=== PATIENT | male | born 1995 | race Caucasian/White ===

== ENCOUNTER 2023-09-23 23:33 | Emergency (ER) | payer OTHER ==
--- NOTE | 2023-09-24 03:01 | ED Physician Documentation ---
History of Present Illness - Stated complaint Stated Complaint: CHEST PX/SOA - Chief complaint Chief Complaint: Cardiac - History obtained from History obtained from: Patient - Additonal information Additional information: HPI from patient. Patient c/o dyspnea, dry cough, and chest pain since approximately 9 PM tonight. Onset was gradual while at home, at rest. Denies fever. He describes the chest p ain as burning "like a blowtorch" (per patient) and indicates it is bilateral and predominantly anterior. There is not a pleuritic component to the chest pain, although deep inspiration tends to exacerbate the coughing. No other exacerbating nor ameliorating factors for the dyspnea, chest pain. Denies h/o similar symptoms. Denies fever, chills, diaphoresis. Denies hemoptysis. No recent plane travel/long trips. No recent surgery nor injury. Has not noticed any leg swelling. There is a family history of spontaneous pneumothorax amongst multiple relatives including his father. Review of Systems Constitutional: denies: Fever, Chills, Myalgias, Sweats Throat: denies: Sore throat Cardiac: reports: Chest pain / pressure. denies: Palpitations, Pedal edema, Calf pain Respiratory: reports: Dyspnea, Cough. denies: Hemoptysis, Wheezing Musculoskeletal: denies: Extremity swelling PD PAST MEDICAL HISTORY - Past Medical History Respiratory: Asthma - Past Surgical History Past Surgical History: No - Present Medications Home Medications: Ambulatory Orders Medication Instructions Recorded Confirmed Albuterol Sulf [Ventolin Hfa 1 - 2 puffs INH Q4HR PRN #1 each 09/24/23 Inhaler] - Allergies Allergies/Adverse Reactions: Allergies Allergy/AdvReac Type Severity Reaction Status Date / Time acetaminophen [From Tylenol] AdvReac Intermediate Nausea Verified 09/23/23 23:41 - Social History Does the pt smoke?: No Smoking Status: Never smoker Does the pt drink ETOH?: No PD ED PE NORMAL - Vitals Vital signs reviewed: Yes - General General: Alert and oriented X 3, No acute distress, Well developed/nourished - Cardiac Cardiac: RRR, No murmur, No gallop, No rub - Respiratory Respiratory: No respiratory distress - Extremities Extremities: No edema PD ED PE EXPANDED - Respiratory Respiratory: Decreased breath sounds (diffusely diminished breath sounds; deep inspiration consistently results in brief BLACKING WHEEL TENDER coughing) Results - Vitals Vitals: Oxygen O2 Source Room air - EKG (time done) No standard instances EKG releavant findings:: EKG personally interpreted by author of this note. Relevant findings are: Rate: Rate (enter#) (87) Rhythm: NSR [place]: LAD QRS: Normal Ischemia: Normal ST segments Other comments: Other comments (artifact V1, V2) - Labs Labs: Laboratory Tests 09/24/23 01:28 Nasal Adenovirus (PCR) NOT DETECTED Nasal B. parapertussis DNA (PCR) NOT DETECTED Nasal Coronavir 229E PCR NOT DETECTED Nasal Coronavir HKU1 PCR NOT DETECTED Nasal Coronavir NL63 PCR NOT DETECTED Nasal Coronavir OC43 PCR NOT DETECTED Nasal Enterovir/Rhinovir PCR NOT DETECTED Nasal Influenza B PCR NOT DETECTED Nasal Influenza A PCR NOT DETECTED Nasal Parainfluen 1 PCR NOT DETECTED Nasal Parainfluen 2 PCR NOT DETECTED Nasal Parainfluen 3 PCR NOT DETECTED Nasal Parainfluen 4 PCR NOT DETECTED Nasal RSV (PCR) NOT DETECTED Nasal B.pertussis DNA PCR NOT DETECTED Nasal C.pneumoniae (PCR) NOT DETECTED [place] Human Metapneumo PCR NOT DETECTED Nasal M.pneumoniae (PCR) NOT DETECTED Nasal SARS-CoV-2 (PCR) NOT DETECTED - Rads (name of study) CXR Relevant Findings:: Prelim report reviewed, EMP independent interpretation of test (I reviewed these images and my interpretation is no cardiopulmonary abnormality including no evidence of pneumothorax), See rad report PD Medical Decision Making - ED course Complexity details: reviewed results, re-evaluated patient, considered differential, d/w patient ED course: Respiratory PCR panel negative for viruses tested. Unremarkable CXR, EKG. He is given albuterol neb and reports feeling he is breathing easier. On reexamination, auscultation of the lungs reveals improved air flow bilaterally. No wheezes, rales, rhonchi. He is in NAD. I suspect viral URI with bronchospasm. Results d/w patient, return precautions reviewed. Albuterol MDI e-prescribed to patient's pharmacy of choice. Departure - Departure Disposition: 01 Home, Self Care Clinical Impression: Bronchitis Condition: Good Instructions: ED Bronchitis Asthmatic Prescriptions: Albuterol Sulf [Ventolin Hfa Inhaler] 1 - 2 puffs INH Q4HR PRN #1 each PRN Reason: Shortness Of Air/Wheezing Comments: Your chest x-ray was normal, and the nasal swab was negative for the viruses tested on this panel (including COVID, influenza, RSV, and several other viruses). Despite this result, your symptom description still would be most suggestive of a viral upper respiratory infection such as bronchitis. You seem to improve with the albuterol nebulized treatment, and thus I am electronically submitting a prescription for an albuterol inhaler to the [facility] in [place]. Follow-up with your primary care provider in 2 to 3 days if your symptoms have not resolved. You can return to the emergency department at any time you feel you need reevaluation, particularly if your symptoms worsen, or if you develop new/concerning signs/symptoms (such as fever, increasing shortness of breath, increasing productive cough, coughing up blood, worsening chest pain). Forms: PCP List Discharge Date/Time: 09/24/23 05:14
[2023-09-24 03:05] LABS: B. PARAPERTUSSIS- RESP PCR PAN NOT DETECTED; B. PERTUSSIS- RESP PCR PANEL NOT DETECTED; C. PNEUMONIAE- RESP PCR PANEL NOT DETECTED; CORONAVIRUS 229E-RESP PCR NOT DETECTED; CORONAVIRUS HKU1-RESP PCR NOT DETECTED; CORONAVIRUS NL63-RESP PCR NOT DETECTED; CORONAVIRUS OC43-RESP PCR NOT DETECTED; HUMAN METAPNEUMOVIRUS NOT DETECTED; INFLUENZA A- RESP PCR PANEL NOT DETECTED; INFLUENZA B - RESP PCR PANEL NOT DETECTED; M. PNEUMONIAE- RESP PCR PANEL NOT DETECTED; PARAINFLUENZA VIRUS 1 NOT DETECTED; PARAINFLUENZA VIRUS 2 NOT DETECTED; PARAINFLUENZA VIRUS 3 NOT DETECTED; PARAINFLUENZA VIRUS 4 NOT DETECTED; RHINOVIRUS/ENTEROVIRUS NOT DETECTED; RSV- RESP PCR PANEL NOT DETECTED; SARS-CoV-2 -RESP PCR PANEL NOT DETECTED
[2023-09-24] MEDS ORDERED: ALBUTEROL NEB 2.5 MG/3 ML INH STA (03:53)
[2023-09-24 05:18] VITALS: BP 129/80; O2SAT 98
--- NOTE | 2023-09-24 09:10 | XRAY Report ---
PROCEDURE: Chest 2V INDICATIONS: dyspnea, cough, chest pain TECHNIQUE: 2 views of the chest were acquired. COMPARISON: None. FINDINGS: Surgical changes and devices: None. Lungs and pleura: An incomplete inspiratory result is noted, with low lung volumes and crowding of t he vascular markings. No focal infiltrates are seen. No large pneumothorax or large pleural effusion can be seen. Mediastinum: Mediastinal contours appear normal. Heart size is normal. Bones and chest wall: No suspicious bony lesions. Overlying soft tissues appear unremarkable. IMPRESSION: Low lung volumes, without an acute cardiopulmonary abnormality seen. Note: No significant discrepancy from the preliminary report. Reviewed by: Aime Patel MD on 09/24/2023 8:08 AM [facility] Approved by: Aime Patel MD on 09/24/2023 8:08 AM [facility] Station ID: [id number]
== END 2023-09-24 05:14 | disposition home or self-care (01) ==
LOC: ED 23:33
DX: J40 Bronchitis, not specified as acute or chronic (principal)
CPT/HCPCS: 87633; 93005; 94640; 99284